=== PATIENT | male | born 1970 | race Caucasian/White ===

== ENCOUNTER 2025-02-08 14:30 | Emergency (ER) | payer BC ==
[~2025-02-08] VITALS: Ht 177.8 cm; Wt 109.0 kg
--- NOTE | 2025-02-08 15:12 | RADIOLOGY REPORT ---
DI FOOT, COMPLETE (3VW MIN), INDICATION: TOE PAIN TECHNICAL DATA: Frontal, oblique and lateral views were obtained of the right foot. COMPARISON: None FINDINGS: There is subluxation of the 4th proximal interphalangeal joint. The hallux sesamoids appear normal. Soft tissues are within normal limits. IMPRESSION: There is subluxation of the 4th proximal interphalangeal joint.
--- NOTE | 2025-02-08 15:42 | Physician Documentation ---
History of Present Illness ~ Chief Complaint: Toe pain Stated Complaint: TOE PAIN Time Seen by MD: 15:05 OK to notify your PCP?: Yes Source: patient Mode of Arrival: POV Exam Limitations: no limitations HPI 54-year-old male with chief complaint right 4th toe pain which he states started last night when he stubbed his toe. He did not realize how bad it was not told he went to work today and reported to his boss that he had injured his toe in his boss asked to look at his foot. He states he then got an appointment at his PCP office this afternoon but when he went to his PCP's office he was sent to the ER. No pre-arrival treatment. Tetanus witin 5 years: Yes Medication Reconciliation Allergies: Coded Allergies: No Known Allergies (Unverified , 02/08/25) Past Medical History Past Medical History: Diabetes Past Surgical History: noncontributory Review of Systems All Other Systems at this time: Reviewed and Negative Physical Exam Vital Signs: Temperature: 98.1, Source: Oral, Heart Rate: 94, Respiratory Rate: 16, BP: 170/94, Pulse Oximetry: 97, Weight: 109.000 Oxygen Flow Rate: 0 Physical Exam General Appearance: Alert, WD/WN. NAD. HEENT: NCAT, PERRL, EOMI. Neck: Supple, trachea midline. Cardiovascular: RRR. No m/r/g. Lungs: CTAB. Breathing unlabored Extremities: Normal inspection. No edema. Skin: Warm/dry, normal color. Right 4th toe ecchymotic, edematous, clearly angulated in the wrong direction of the base of the toe the toe is pointed/angulated toward his 5th toe rather than straight. Cap refill at toe is <2seconds. Pedal pulses 2+bilaterally. Normal nail plate. Neurological: Alert and oriented x4, normal gait. Psychiatric: Affect congruent with mood. Progress Progress Note Traction on right 4th toe while pushing the base of the toe medially towards the big toe and felt a pop and could clearly see that the toe was back in alignment. Postreduction film showed normal alignment. Patient did without anesthetic per his request. Results/Orders Reviewed/noted all lab results: Yes Results/Orders Orders - JW HOLLINS Toe(S) (02/08/25 15:05) Completed Orders - JW HOLLINS Toe(S) (02/08/25 15:05) Vital Signs 02/08/25 02/08/25 14:32 16:13 Temp 98.1 98.0 Pulse 94 69 Resp 16 12 B/P (MAP) 170/94 129/70 Pulse Ox 97 98 O2 Flow Rate 0 EKG/XRAY/CT/US/VASC/MRI Bone/Soft Tissue X-Ray (Ext.) #1: Interpreted By: radiologist Views: 3 VIEW Indication: pain Additional Comment DI FOOT, COMPLETE (3VW MIN), INDICATION: TOE PAIN TECHNICAL DATA: Frontal, oblique and lateral views were obtained of the right foot. COMPARISON: None FINDINGS: There is subluxation of the 4th proximal interphalangeal joint. The hallux sesamoids appear normal. Soft tissues are within normal limits. IMPRESSION: There is subluxation of the 4th proximal interphalangeal joint. Bone/Soft Tissue X-Ray (Ext.) #2: Interpreted By: self Views: 3 VIEW Additional Comment CLINICAL INDICATION: post reduction right 4th toe TECHNIQUE: DI TOE(S) Comparison: None FINDINGS/IMPRESSION: : There is no evidence of acute fracture or dislocation. Soft tissues are unremarkable. Medical Decision Making Toe Diff Dx:Considerations: Include: Abrasion, Cellulitis, Contusion, Dislocation, Felon, Fracture, Hematoma, Laceration, Neurovascular injury, Open fracture, Paronychia, Subungual hematoma Departure Time of Disposition: 15:42 Disposition: 01 HOME / SELF CARE / HOMELESS Impression: Primary Impression: Toe joint dislocation Qualified Codes: S93.104A - Unspecified dislocation of right toe(s), initial encounter Condition: Stable Discharge Instructions: Toe Dislocation Additional Instructions: SINCE NO FRACTURE I DID NOT COVER YOU WITH ANTIBIOTICS THE JOINT WAS D ISLOCATED BUT NOT FRACTURED I RECOMMEND YOU KEEP LUCIO TAPED FOR THE NEXT WEEK Referrals: NO PRIMARY CARE PROVIDER (PCP) Education Educated: Patient Educated regarding: diagnosis, treatment, need for follow up Signature Scribe Signature: x Attestation: JW Mccartney Feb 08, 2025 15:42
[2025-02-08 16:13] VITALS: BP 129/70; PULSE 69; RESP 12; TEMP 98; O2SAT 98
--- NOTE | 2025-02-08 16:18 | RADIOLOGY REPORT ---
CLINICAL INDICATION: post reduction right 4th toe TECHNIQUE: DI TOE(S) Comparison: None FINDINGS/IMPRESSION: : There is no evidence of acute fracture or dislocation. Soft tissues are unremarkable.
== END 2025-02-08 16:15 | disposition home or self-care (01) ==
LOC: ER 14:31
DX: S93.114A Dislocation of interphalangeal joint of right lesser toe(s), initial encounter (principal); E11.9 Type 2 diabetes mellitus without complications; X58.XXXA Exposure to other specified factors, initial encounter; Y93.89 Activity, other specified; Y92.89 Other specified places as the place of occurrence of the external cause; Y99.0 Civilian activity done for income or pay
CPT/HCPCS: 28660; 73630; 73660; 99284